=== PATIENT | female | born 1995 | race Caucasian/White ===

== ENCOUNTER 2018-12-14 05:58 | Observation (INO) ==
--- NOTE | 2018-12-08 09:05 | PAT Medication Instructions ---
Medication Instructions Date of Service December 08, 2018 Home Medications Medication Instructions Recorded levonorgestrel 17.5 mcg/24 hrs 1 ea IU ONCE #1 ea 12/07/18 (5yrs) 19.5mg intrauterine device sertraline 25 mg tablet 25 mg PO DAILY #30 tab 12/07/18 Continue as directed levonorgestrel 17.5 mcg/24 hrs (5yrs) 19.5mg intrauterine device Take morning of surgery With a small sip of water, OTHERWISE NOTHING TO EAT OR DRINK AFTER MIDNIGHT: sertraline 25 mg tablet 25 mg PO DAILY Other Notes If you have any questions please call us at [phone] or [phone] or [phone] or [phone]
--- NOTE | 2018-12-08 12:34 | Anesthesiology Consultation ---
Date of Service December 08, 2018 Assessment & Plan (1) Encounter for pre-operative examination: - No previous anesthesia records available. Chart Review Chart Review: Acceptable Risk for Surgery and Patient seen in Pre Admission Test ing Consults Requested none Teaching & Discussion Pre-Anesthesia Teaching/Discussion Notes: Instructed NPO after midnight before surgery, except medications with 15 cc of water. Medication instructions provided according to the PAT guidelines. History Surgery Operation Date: 12/14/18 08:50 Proposed Procedures p Bilateral Reduction Mammoplasty - Tiara Scruggs MD Height/Weight Height: 5 ft 6 in Weight: 60.9 kg Allergies Allergy/AdvReac Type Severity Reaction Status Date / Time Penicillins Allergy Mild Rash Verified 12/07/18 14:32 Medications Home Medications Medication Instructions Recorded Confirmed Last Taken levonorgestrel 17.5 mcg/24 hrs 1 ea IU ONCE #1 ea 12/07/18 Unknown (5yrs) 19.5mg intrauterine device sertraline 25 mg tablet 25 mg PO DAILY #30 tab 12/07/18 Unknown Past Medical History Medical History Anxiety Scoliosis UTI (urinary tract infection) PRESENTLY BEING TREATED Exercise / Class Metabolic Activity 1 > 8 Run/Swim/Ski/Tennis (Goes to gym 4 days per week. 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 Able to climb FOS. Denies CP or SOB. ) Past Family History Family History Other No significant family history Past Surgical History Surgical History History of tonsillectomy Past Anesthesia History No Hx of Anesthesia Complications and No Family Hx of Anesthesia Complications History of PONV No Hx of PONV and No Hx of Motion Sickness Social History Smoking Status: Never smoker Do You Dip or Chew Tobacco: No Hx Alcohol Use: Yes Alcohol type: beer, wine and hard liquor alcohol intake frequency: a few times a month Hx Substance Use: No substance use type: does not use Review of Systems Patient denies chest pain, shortness of breath, dyspnea on exertion, reflux, cough, wheezing, palpitations. +Joint Pain (Recurrent Hip pain from previous dance injury) Physical Exam Vital Signs BP: 125/79 P: 98 R: 16 T: 98.2 SPO2: 98% on RA ENMT Thyromental Distance: > or= 3.5 Finger Breadths (3.5) Mallampati Class: I Mouth / Teeth: 1. Permanent retainer Neck normal visual inspection and trachea midline; neck extension not limited Respiratory normal respiratory effort Auscultation: lungs clear to auscultation bilaterally Cardiovascular Rate/Rhythm: regular rate and regular rhythm Heart Sounds: no murmur Neurologic moves all extremities Psychiatric Orientation: alert and oriented x 3 Testing Laboratory Results 12/08/18 12:42 12/08/18 12:42 PT 10.9 Seconds (9.0-12.0) 12/08/18 12:42 INR 1.1 (0.9-1.1) 12/08/18 12:42 APTT 30.0 Seconds (21.0-31.0) 12/08/18 12:42
[2018-12-08 16:19] LABS: Basophils # (auto) 0.04 K/uL (0-0.2); Basophils % (auto) 0.9 %; Eosinophils # (auto) 0.05 K/uL (0-0.5); Eosinophils % (auto) 1.1 %; Hematocrit (blood only) 43.5 % (37-47); Immature Granulocytes # (auto) 0.02 K/uL (0.00-0.02); Immature Granulocytes % (auto) 0.4 %; Lymphocytes # (auto) 1.61 K/uL (1.2-3.4); Lymphocytes % (auto) 34.6 %; Mean Corpuscular Hgb Conc 32.2 g/dL (32-36); Mean Corpuscular Volume 90.4 fL (80-100); Mean Platelet Volume 9.8 fL (7.4-10.4); Monocytes # (auto) 0.37 K/uL (0.11-0.59); Neutrophils # (auto) 2.56 K/uL (1.4-6.5); Platelet Count 308 K/uL (130-400); RDW Standard Deviation 42.6 fL (36.4-46.3); Red Blood Count 4.81 M/uL (4.2-5.4); White Blood Count 4.65 K/uL (4.8-10.8)
[2018-12-08 16:25] LABS: BUN Creatinine Ratio 13.7 (10-20); Calcium 8.8 mg/dl (8.5-10.1); Creatinine Clr Calc Pharmacy 101.6 ml/min; Est GFR (African American) 118.6; Est GFR (Non-African American) 102.3; Potassium 3.8 mmol/L (3.5-5.1)
[2018-12-08 16:30] LABS: INR 1.1 (0.9-1.1); Partial Thromboplastin Ratio 1.1; Prothrombin Time 10.9 Seconds (9.0-12.0)
[2018-12-14] MEDS ORDERED: LR 15ML/HR IV SCH (06:00)
[2018-12-14] MEDS ORDERED: CLINDAMYCIN 600 MG/54 ML BAG IV SCH (06:00)
[2018-12-14] MEDS ORDERED: LIDOCAINE/EPINEPHRINE 1% 20 ML VIAL ONE (07:00)
[2018-12-14] MEDS ORDERED: BUPIVACAINE 0.25% 30 ML VIAL ONE (07:00)
--- NOTE | 2018-12-14 07:04 | History & Physical Bridge Note ---
Date of Service December 14, 2018 History & Physical Bridge Note I have examined the patient, reviewed the History & Physical and in the interval since the performance of the History & Physical I have noted the following changes of clinical significance: reports that she gets a rash from stress. Hoping for B cup/small C.
[2018-12-14] MEDS ORDERED: SCOPOLAMINE 1.5 MG TDSY TD ONE (07:08)
[2018-12-14] MEDS ORDERED: fentaNYL citrate 100 MCG/2 ML VIAL ONE ×3 (07:10→12:44)
[2018-12-14] MEDS ORDERED: MIDAZOLAM HCL 1 MG/ML 2ML VIAL ONE (07:10)
[2018-12-14] MEDS ORDERED: PROPOFOL IV EMULSION 10 MG/ML 20 ML VIAL IV ONE (07:10)
[2018-12-14] MEDS ORDERED: KETAMINE HCL INJ 50 MG/ML 10 ML VIAL ONE (07:10)
[2018-12-14] MEDS ORDERED: ROCURONIUM BROMIDE 10 MG/ML 5 ML VIAL ONE (07:10)
[2018-12-14] MEDS ORDERED: LIDOCAINE HCL 2% 2 ML VIAL/AMP(20MG/ML) INFIL ONE (07:10)
[2018-12-14] MEDS ORDERED: SCOPOLAMINE 1.5 MG TDSY ONE (07:11)
[2018-12-14] MEDS ORDERED: ACETAMINOPHEN 1000 MG/100 ML IV IV ONE (07:13)
[2018-12-14] MEDS ORDERED: LABETALOL HCL IV 5 MG/ML 20ML IV PRN (07:35)
[2018-12-14] MEDS ORDERED: ePHEDrine sulfate 50 MG/ML AMP IV PRN (07:35)
[2018-12-14] MEDS ORDERED: PHENYLEPHRINE 100MCG/ML 5ML SYR IV PRN (07:35)
[2018-12-14] MEDS ORDERED: HYDROmorphone INJ 1 MG/ML SYRINGE IV PRN (07:35)
[2018-12-14] MEDS ORDERED: MEPERIDINE HCL 25 MG/ML CARP IV PRN (07:35)
[2018-12-14] MEDS ORDERED: ONDANSETRON INJ 2 MG/ML 2 ML VIAL IV PRN ×2 (07:35→12:19)
[2018-12-14] MEDS ORDERED: ATROPINE SULFATE 0.1 MG/ML 10ML SYR IV PRN (07:35)
[2018-12-14] MEDS ORDERED: CHECK SCOPOLAMINE PATCH PLACEMENT SCH (08:00)
[2018-12-14] MEDS ORDERED: DEXAMETHASONE SOD INJ 4 MG/ML VIAL ONE (09:05)
[2018-12-14] MEDS ORDERED: DiphenhydrAMINE HCL 50 MG/ML VIAL ONE (09:05)
[2018-12-14] MEDS ORDERED: ONDANSETRON INJ 2 MG/ML 2 ML VIAL ONE ×2 (09:05→13:19)
[2018-12-14] MEDS ORDERED: ePHEDrine sulfate 50 MG/ML AMP ONE (09:30)
--- NOTE | 2018-12-14 11:34 | Post Operative Brief Note ---
PG Immediate Post Op with CF Date of Surgery December 14, 2018 Pre & Post Diagnosis Operation Date: 12/14/18 07:30 Pre-Op Diagnosis: Symptomatic Bilateral Macromastia Post-Op Diagnosis: Symptomatic Bilateral Macromastia Procedure Operation Date: 12/14/18 07:30 Actual Procedures p Bilateral Breast Reduction (Bilateral) - Tiara Scruggs MD Surgeon Tiara Scruggs MD Testing Analyst Mikaela Kendrick PA-C, Savannah Castelan PA-C Estimated Blood Loss 25 Findings Consistent with Post-Op Diagnosis Specimens Specimen Description: Fresh Specimen: A.) Left Breast Tissue - 396 grams Fresh Specimen: B.) Right Breast Tissue - 422 grams Drains Bo-Durant Drain (x2)
--- NOTE | 2018-12-14 11:37 | Operative Report ---
Post Operative Report Pre & Post Diagnosis Operation Date: 12/14/18 07:30 Pre-Op Diagnosis: Symptomatic Bilateral Macromastia Post-Op Diagnosis: Symptomatic Bilateral Macromastia Procedure Operation Date: 12/14/18 07:30 Actual Procedures p Bilateral Breast Reduction (Bilateral) - Tiara Scruggs MD Surgeon Tiara Scruggs MD Molding Line Assistant Mikaela Kendrick PA-C, Savannah Castelan PA-C Estimated Blood Loss 25 Findings Consistent with Post-Op Diagnosis Specimens left breast tissue 396 grams to pathology, right breast tissue 422 grams to pathology Drains JPx2 Anesthesia Type General Complications none Indications back, neck and shoulder pain due to macromastia Description of Procedure The risks, benefits, and alternatives of the procedure were explained to the patient who agreed and signed consent. She was identified and marked in the preoperative holding area. She was brought to the operating room where she was positioned supine and placed under general anesthesia without incident. Surgical site was prepped and draped sterilely. A time-out procedure was performed. I began with the left side. Markings were reassessed and a 7 cm pedicle was marked. 1% lidocaine with epinephrine was used to anesthetize the planned incisions. A 38 mm cookie cutter was used to circumscribe the nipple-areolar complex. The previously marked 7 cm pedicle was incised using a 15 blade scalpel and deepithelized. I began with the medial dissection of the pedicle using the Peak Plasmablade. Cautery was used to incise through dermis and breast parenchyma down to the chest wall, taking care not to undermine the pedicle during dissection. A similar procedure was undertaken on the lateral aspect of the pedicle again taking care not to undermine. Lastly, the pedicle was dissected out superiorly using the Peak Plasmablade and this was carried down to the chest wall as well. I then began with excision of the medial breast tissue followed by lateral aspect of the breast tissue and surrounding keyhole incision. A 15 blade scalpel was used to make the inframammary fold incision and the Peak Plasmablade was used to deepen the incision through dermis and breast parenchyma. Dissection was then carried superiorly to the level of the superior incision. Superior incision was then incised using a 15 blade scalpel and again dissected using the Peak Plasmablade. This was undertaken laterally and then around the keyhole portion of the incision. Care was taken to leave some fat on the lateral pectoralis fascia in order to protect the T4 intercostal nerve. Hemostasis was achieved with the Peak Plasmablade and Bovie electrocautery. The specimen was passed off in its entirety for weighing. Additional resection was undertaken from the superior flap in order to facilitate closure of the breast and to provide the best shape. The total resection weight of the left breast was 396 grams. The wound was irrigated with saline and hemostasis was achieved with the Peak Plasmablade. 0.25% Marcaine plain was used to anesthetize the incisions as well as the pectoralis fascia. A 15 Niuean Shawn drain was brought out through a separate stab incision. The nipple-areolar complex was brought into the keyhole using 2-0 Vicryl deep dermal suture. The wound was closed first in a lateral to mid breast direction and then medial to mid breast direction using 2-0 Vicryl deep dermal sutures. Vertical limb was also approximated using 2-0 Vicryl deep dermals and the nipple-areolar complex was inset using 2-0 Vicryl deep dermal sutures. Next, the superficial dermal layer was closed using 2-0 PDO running Quill suture along the inframammary fold and 3-0 PDS interrupted dermal sutures along the vertical limb and nipple- areolar complex. Lastly 3-0 Monocryl running subcuticular suture was placed. A similar procedure was undertaken on the right side with maximal excision weight of 422 grams. Breasts were symmetric and nipple-areolar complexes were viable bilaterally following wound closure. Dermabond Prineo was applied along the inframammary fold and vertical limb and Dermabond was placed around the nipple-areolar complex. Dry dressings and a surgical bra were placed. The patient was awakened and transferred to recovery room in satisfactory condition. Mikaela Kendrick and Svaannah Castelan PA-C were present and scrubbed throughout the procedure and was instrumental in providing retraction during dissection of the pedicle and assisting in wound closure. I attest to the content of the Intraoperative Record and any orders documented therein. Any exceptions are noted below.
[2018-12-14] MEDS ORDERED: MoRPHine SULFATE 4 MG/ML 1 ML CARP\\VIAL IV PRN (12:19)
[2018-12-14] MEDS ORDERED: MoRPHine SULFATE 10 MG/ML CARP/VIAL IV PRN (12:19)
[2018-12-14] MEDS ORDERED: MoRPHine SULFATE 2 MG/ML CARP IV PRN (12:19)
[2018-12-14] MEDS ORDERED: OXAZEPAM 10 MG CAPSULE PO PRN (12:19)
[2018-12-14] MEDS ORDERED: PROMETHAZINE HCL 12.5 MG in SODIUM CHLORIDE 0.9% 50 ML IV PRN (12:19)
[2018-12-14] MEDS ORDERED: ACETAMINOPHEN 325 MG TAB PO PRN (12:19)
[2018-12-14] MEDS ORDERED: DiphenhydrAMINE HCL 50 MG/ML VIAL IV PRN (12:19)
[2018-12-14] MEDS ORDERED: OXYCODONE/ACETAMINOPHEN 5mg/325mg TAB PO PRN (12:19)
--- NOTE | 2018-12-14 12:38 | Anesthesiology Progress Note ---
Date of Service December 14, 2018 Anesthesia Post Procedure Vital Signs Vital Signs: Temp Pulse Resp BP Pulse Ox 12/14/18 06:13 37 C 98 H 16 143/95 H 98 Transfer of Care Handoff Completed per policy Notes Mental Status: alert / awake / arousable Patient Amnestic to Procedure: Yes Nausea / Vomiting: adequately controlled Pain: adequately controlled Airway Patency, RR, SpO2: stable & adequate BP & HR: stable & adequate Hydration State: stable & adequate Anesthetic Complications: no major complications apparent and Pt Satisfied with anesthetic care Notes: The patient is awake and comfortable.
[2018-12-14] MEDS: fentaNYL citrate 100 MCG/2 ML VIAL IV PRN ×2 (12:45→12:50)
[2018-12-14] MEDS ORDERED: NEOSTIGMINE METHYLSULFATE 5 MG/5 ML SYR ONE (13:18)
[2018-12-14] MEDS ORDERED: GLYCOPYRROLATE 0.2 MG/ML VIAL ONE (13:18)
[2018-12-14] MEDS ORDERED: LEVONORGESTREL IU SCH (13:38)
[2018-12-14] MEDS: D5W AND 1/2NSS + 20MEQ KCL 20 MEQ/1,000 ML BAG IV SCH (14:10)
[2018-12-14] MEDS: OXYCODONE/ACETAMINOPHEN 5mg/325mg TAB PO PRN ×2 (15:14→21:39)
[2018-12-14] MEDS: CLINDAMYCIN 600 MG in DEXTROSE 5% 50 ML IV SCH (17:23)
[2018-12-15] MEDS: CLINDAMYCIN 600 MG in DEXTROSE 5% 50 ML IV SCH ×2 (02:13→08:40)
[2018-12-15] MEDS: D5W AND 1/2NSS + 20MEQ KCL 20 MEQ/1,000 ML BAG IV SCH (02:14)
--- NOTE | 2018-12-15 07:16 | Surgery Progress Note ---
Date of Service December 15, 2018 Assessment & Plan (1) Breast hypertrophy: s/p bilateral breast reduction 1. POD#1 drains removed. nipples viable. d/c home today with office f/u tomorrow Subjective Patient resting comfortably. Offers no concerns. Is tolerating regular diet and ambulating. Physical Exam Constitutional: WD/WN, vitals as above no acute distress Skin: + incision (CDI, nipples viable, drains with serosang output) Results & Data Vital Signs (Past 12 Hours) Vital Signs Temp Pulse Resp BP Pulse Ox 12/15/18 03:56 37.4 C 72 16 99/63 L 97 12/14/18 23:05 37.3 C 77 16 106/61 97 12/14/18 20:17 37.1 C 70 18 100/62 96 PG Care Time/CCT Total # of Minutes Spent Total Time Spent with Patient: Total time spent is greater than 50% in coordination of care (as documented) at patient's floor/unit and/or counseling patient:
--- NOTE | 2018-12-15 07:19 | Discharge Summary ---
Date of Service December 15, 2018 Admission HPI Per Admitting Provider see admission H&P Admission Exam Per Admitting Provider see admission H&P Principal Diagnosis breast hypertrophy Discharge Exam Constitutional WD/WN, vitals as above no acute distress Skin + incision (CDI, nipples viable, drains with serosang output) Discharge Data Allergies Allergy/AdvReac Type Severity Reaction Status Date / Time Penicillins Allergy Mild Rash Verified 12/07/18 14:32 Procedures Performed Operation Date: 12/14/18 07:30 Actual Procedures p Bilateral Breast Reduction (Bilateral) - Tiara Scruggs MD Hospital Course (1) Breast hypertrophy: Patient presented to [facility] with history of symptomatic macromastia. She was taken to the OR and underwent bilateral breast reduction. There were no intraoperative complications. She was taken to recovery and transferred to med/surg for observation. On POD#1, she was feeling well. She was tolerating a regular diet and ambulating. On exam, her vitals were stable. Her incisions were CDI and nipples viable. Her drains were removed. She was discharged home with instructions to follow-up in the office in one day. Total Time Total Time Spent Total Time Spent (In Minutes): 10 Total Time Includes: Examination of the Patient, Discharge Planning and Medication Reconciliation Discharge Plan Discharge Items Patient Disposition: Home - Self-Care Reason For Visit: Symptomatic Macromastia Discharge Diagnosis: s/p bilateral breast reduction Discharge Goals: Decrease discomfort Activity: As commented below Non-emergency contact: Surgeon Call non-emergency contact if: you have any medication questions, your pain is not controlled, you have a fever, your wound has increased redness and your wound has increased drainage Follow-up/Referrals: Chelsy Valentino D.OTerrance [Primary Care Provider] - Diet: Regular Addtl Provider Instructions: ACTIVITY RECOMMENDATIONS: __Normal activities _x_No bending, lifting or straining __No driving __Driving allowed when you are off pain medications _x_Walking permitted __You should have help at home for ___ days DRESSINGS: __No dressings required _x_Keep dressings dry/in place until first office visit __Remove dressings ___ and leave dressings off __Apply ice ___ days __Remove dressings and reapply garment __Apply antibiotic ointment (Bacitracin, Neosporin, etc) to wounds 3-4 times/day for 10 days BATHING: _x_Keep dressings dry _x_Sponge bathing permitted __Showering permitted _x_No swimming, hot tubs or soaking in a tub MEDICATIONS: Resume previous medications unless instructed otherwise by your surgeon. _x_Do not use aspirin, Motrin, Advil or Ibuprofen as these may promote bleeding. Please use Tylenol. _x_Prescription(s) provided: pain medication provided at your last office visit OTHER INSTRUCTIONS: __Record drain output 2-3 times per day SPECIAL CARE INSTRUCTIONS: * It is normal to have a mild fever after surgery. If your temperature is higher than 101.5 degrees F, please call the office at [phone]. * Constipation is a typical side effect of pain medication. An [id number] stool softener will help relieve this. * Leaking around surgical drains may occur and should not cause concern. Sometimes these drains become clogged. If this happens, remove the bulb and milk the clot out of the tube, then replace the bulb. * Drainage from wounds after liposuction is normal and should be expected. Garments will become soiled. You should protect furniture and bedding. This drainage should mostly subside within 2-3 days. Leave garments in place unless instructed to remove them. * If you have unusual drainage from a wound or are concerned you have an infection or have any questions or concerns, please call the office at [phone]. FOLLOW UP VISIT: If not already scheduled, please call the office, , when you return home after surgery to schedule an appointment to be seen in __1_ days. Prescriptions: Continued Kyleena 17.5 mcg/24 hrs (5 yrs) 19.5 mg intrauterine device 1 ea IU ONCE Qty: 1 RF: 0 Stand-Alone Forms: [facility] Discharge Orders: Discharge Order (Routine); Ordered 12/15/18 Ordered By: Mikaela Kendrick Admission Data Admit Date/Time: 12/14/18 12:19 Attending Provider: Tiara Scruggs Admit Provider: Tiara Scruggs Primary Care Provider: Chelsy Valentino Service: Surgical Services Other Pending Studies at Discharge: Yes Studies:: pathology
[2018-12-15] MEDS ORDERED: MULTIVITAMIN TAB PO SCH (09:00)
== END 2018-12-15 09:30 | disposition home or self-care (01) ==
LOC: 3N 05:58 → ASU 05:58